=== PATIENT | male | born 1955 | race Caucasian/White ===

== ENCOUNTER 2022-06-09 14:30 | Inpatient (IN) | payer OTHER, MEDICAID ==
[~2022-06-09] VITALS: Ht 188 cm; Wt 99.4 kg
[2022-06-09 14:56] LABS: Basophils # (auto) 0.1 10 ^3/uL (0-0.2); Basophils % (auto) 0.5 % (0.0-2.0); Eosinophils # (auto) 0.1 10 ^3/uL (0-0.8); Eosinophils % (auto) 0.7 % (0.0-7.0); Hematocrit 48.7 % (41.0-53.0); Hemoglobin 16.7 g/dL (13.5-17.5); Lymphocytes # (auto) 2.6 10 ^3/uL (0.4-5.4); Lymphocytes % (auto) 14.6 % (10.0-50.0); Mean Corpuscular Hemoglobin 30.8 pg (28.0-32.0); Mean Corpuscular Hgb Conc. 34.2 g/dL (32.0-36.0); Monocytes # (auto) 2.4 10 ^3/uL (0-1.3); Monocytes % (auto) 13.5 % (0.0-12.0); Neutrophils # (auto) 12.4 10 ^3/uL (1.6-8.6); Neutrophils % (auto) 70.7 % (37.0-80.0); Nucleated Red Blood Cells % 0.1 %; Red Blood Cells 5.41 10^6/uL (4.5-5.90); Red Cell Distribution Width 14.3 % (11.8-14.3); White Blood Cell 17.6 10^3/uL (4.4-10.8)
[2022-06-09] MEDS ORDERED: ASPirin 325 MG TAB PO ONE (15:00)
[2022-06-09 15:15] LABS: INR 1.04 (0.9-1.15); Partial Thromboplastin Time 26.6 sec (24.6-33.4)
[2022-06-09 15:17] LABS: Albumin 4.1 g/dL (3.4-5.0); BUN/Creatinine Ratio 27.6; Potassium 3.6 mmol/L (3.5-5.1)
[2022-06-09 15:20] LABS: Bilirubin, Total 0.4 mg/dL (0.2-1.0); Total Protein 7.6 g/dL (6.4-8.2)
[2022-06-09] MEDS ORDERED: ENOXAPARIN SOD 100 MG/1 ML SYRINGE SC ONE (19:00)
[2022-06-09] MEDS ORDERED: FUROSEMIDE 40 MG/4 ML VIAL IV ONE (19:00)
[2022-06-09] MEDS ORDERED: NITROGLYCERIN 50MG/250ML 250 ML IV ONE (20:15)
[2022-06-09] MEDS ORDERED: HEPARIN SODIUM (PORCINE) 5000 UNITS/ML 1ML VIAL IV ONE ×2 (20:15)
[2022-06-09] MEDS ORDERED: HEPARIN DRIP/D5W 100UNITS/ML 250 ML IV SCH (20:15)
[2022-06-09] MEDS ORDERED: ONDANSETRON HCL 4 MG/2 ML VIAL IV PRN (20:45)
[2022-06-09] MEDS ORDERED: NITROGLYCERIN 0.4 MG SL TAB SL PRN (20:45)
[2022-06-09] MEDS: MORPHINE SULFATE INJ 2 MG/ml SYRG IV PRN ×2 (20:56→22:47)
[2022-06-09 21:22] LABS: Basophils # (auto) 0.1 10 ^3/uL (0-0.2); Basophils % (auto) 0.5 % (0.0-2.0); Eosinophils # (auto) 0.2 10 ^3/uL (0-0.8); Hemoglobin 15.6 g/dL (13.5-17.5); Lymphocytes # (auto) 3.7 10 ^3/uL (0.4-5.4); Lymphocytes % (auto) 22.3 % (10.0-50.0); Mean Corpuscular Hemoglobin 30.6 pg (28.0-32.0); Mean Corpuscular Hgb Conc. 33.2 g/dL (32.0-36.0); Monocytes # (auto) 2.6 10 ^3/uL (0-1.3); Monocytes % (auto) 15.6 % (0.0-12.0); Neutrophils % (auto) 60.6 % (37.0-80.0); Nucleated Red Blood Cells % 0.1 %; Red Blood Cells 5.11 10^6/uL (4.5-5.90); Red Cell Distribution Width 14.4 % (11.8-14.3); White Blood Cell 16.5 10^3/uL (4.4-10.8)
[2022-06-09 21:35] LABS: INR 1.03 (0.9-1.15)
[2022-06-09] MEDS ORDERED: ATORVASTATIN 20 MG TAB PO SCH (22:00)
[2022-06-09 22:36] LABS: Urine Bacteria NONE SEEN /hpf (None Seen); Urine Blood Negative /uL (Negative); Urine Specific Gravity 1.012 (1.001-1.035); Urine WBC <1 /hpf (0 - 3)
[2022-06-10] VITALS (9 sets, daily range): BP systolic 103–138; BP diastolic 59–81
[2022-06-10] MEDS ORDERED: ATEN1TAB PO (01:08)
[2022-06-10] MEDS ORDERED: OXYC-904 PO (01:08)
[2022-06-10] MEDS ORDERED: METF-372 PO (01:08)
[2022-06-10] MEDS ORDERED: TRAZ1TAB12 PO (01:08)
[2022-06-10] MEDS ORDERED: ATEN-60 PO (01:08)
[2022-06-10] MEDS ORDERED: CLON0.5T3 PO (01:08)
[2022-06-10] MEDS ORDERED: AML5T PO (01:08)
[2022-06-10] MEDS ORDERED: GABA400C PO (01:08)
[2022-06-10 04:01] LABS: Basophils # (auto) 0.1 10 ^3/uL (0-0.2); Basophils % (auto) 0.5 % (0.0-2.0); Eosinophils # (auto) 0.3 10 ^3/uL (0-0.8); Eosinophils % (auto) 1.9 % (0.0-7.0); Hematocrit 44.6 % (41.0-53.0); Hemoglobin 14.9 g/dL (13.5-17.5); Lymphocytes # (auto) 4.6 10 ^3/uL (0.4-5.4); Lymphocytes % (auto) 32.3 % (10.0-50.0); Mean Corpuscular Hemoglobin 30.7 pg (28.0-32.0); Mean Corpuscular Hgb Conc. 33.5 g/dL (32.0-36.0); Mean Corpuscular Volume 91.5 fL (80.0-100.0); Monocytes # (auto) 2.4 10 ^3/uL (0-1.3); Monocytes % (auto) 17.2 % (0.0-12.0); Neutrophils # (auto) 6.8 10 ^3/uL (1.6-8.6); Neutrophils % (auto) 48.1 % (37.0-80.0); Red Blood Cells 4.87 10^6/uL (4.5-5.90); Red Cell Distribution Width 14.5 % (11.8-14.3); White Blood Cell 14.2 10^3/uL (4.4-10.8)
[2022-06-10 04:15] LABS: INR 1.1 (0.9-1.15); Partial Thromboplastin Time 41.8 sec (24.6-33.4)
[2022-06-10 04:17] LABS: Albumin 3.4 g/dL (3.4-5.0)
[2022-06-10 04:21] LABS: BUN/Creatinine Ratio 36.3; Bilirubin, Total 0.4 mg/dL (0.2-1.0); Total Protein 6.7 g/dL (6.4-8.2)
[2022-06-10] MEDS ORDERED: POTASSIUM CHLORIDE 40 MEQ, LIDOCAINE 1% (LOCAL ANESTH.) 4 ML in SODIUM CHL 0.9% 250 ML IV ONE (10:00)
[2022-06-10 11:16] LABS: Magnesium 2.3 mg/dL (1.6-2.6)
[2022-06-10] MEDS: MORPHINE SULFATE INJ 2 MG/ml SYRG IV PRN ×2 (11:22→14:03)
[2022-06-10 11:31] LABS: INR 1.06 (0.9-1.15); Partial Thromboplastin Time 36.5 sec (24.6-33.4)
[2022-06-10] MEDS: ASPirin 81 mg TAB PO SCH (11:41)
[2022-06-10] MEDS ORDERED: HEPARIN DRIP/D5W 100UNITS/ML 250 ML IV SCH (11:45)
[2022-06-10] MEDS ORDERED: NITROGLYCERIN 0.2MG/HR TOPICAL PATCH TD ONE (12:15)
[2022-06-10] MEDS ORDERED: PANTOPRAZOLE 40 MG/10 ML VIAL INJ IV ONE (12:15)
[2022-06-10] MEDS: OXYCODONE W/ ACETAMINOPHEN 5/325MG TABLET PO PRN ×2 (13:27→22:49)
[2022-06-10] MEDS ORDERED: fentaNYL CITRATE 100 MCG/2 ML VL ONE (15:03)
[2022-06-10] MEDS ORDERED: ANGIOMAX 250 MG VIAL IV ONE (15:03)
[2022-06-10] MEDS ORDERED: MIDAZOLAM HCL 2MG/2ML 2ml VIAL (1mg/ml) ONE (15:04)
[2022-06-10] MEDS ORDERED: SODIUM CHL 0.9% 50 ML ONE (15:04)
[2022-06-10] MEDS ORDERED: VERAPAMIL 2.5MG/ML INJ 2ML VIAL IV ONE (15:09)
[2022-06-10] MEDS ORDERED: HEPARIN SODIUM (PORCINE) 5000 UNITS/ML 1ML VIAL ONE (15:18)
[2022-06-10] MEDS ORDERED: IODIXANOL 320MG/ML 100ML BTL IV ONE (15:33)
[2022-06-10] MEDS ORDERED: ATROPINE SULF 1 MG/10ml SYR ONE (15:55)
[2022-06-10] MEDS ORDERED: TICAGRELOR 90 MG TAB ONE (16:21)
[2022-06-10] MEDS ORDERED: HYDROmorphone HCL 2 MG/ML VL/or syr ONE (16:22)
[2022-06-10] MEDS ORDERED: ATORVASTATIN 20 MG TAB PO SCH (22:00)
[2022-06-10] MEDS ORDERED: traZODone HCL 50 MG TAB PO SCH (22:00)
[2022-06-10] MEDS: CARVEDILOL 3.125 MG TAB PO SCH (22:50)
[2022-06-11 07:02] LABS: Basophils # (auto) 0.1 10 ^3/uL (0-0.2); Basophils % (auto) 0.6 % (0.0-2.0); Eosinophils # (auto) 0.2 10 ^3/uL (0-0.8); Eosinophils % (auto) 1.3 % (0.0-7.0); Hematocrit 41.9 % (41.0-53.0); Hemoglobin 14.3 g/dL (13.5-17.5); Lymphocytes # (auto) 2.3 10 ^3/uL (0.4-5.4); Lymphocytes % (auto) 19.1 % (10.0-50.0); Mean Corpuscular Hemoglobin 30.8 pg (28.0-32.0); Mean Corpuscular Hgb Conc. 34.3 g/dL (32.0-36.0); Monocytes # (auto) 1.9 10 ^3/uL (0-1.3); Monocytes % (auto) 15.4 % (0.0-12.0); Neutrophils # (auto) 7.7 10 ^3/uL (1.6-8.6); Neutrophils % (auto) 63.6 % (37.0-80.0); Nucleated Red Blood Cells % 0.1 %; Red Blood Cells 4.65 10^6/uL (4.5-5.90); Red Cell Distribution Width 13.9 % (11.8-14.3); White Blood Cell 12.1 10^3/uL (4.4-10.8)
[2022-06-11 07:20] LABS: BUN/Creatinine Ratio 34.9; Calcium 9.2 mg/dL (8.5-10.1); Potassium 3.4 mmol/L (3.5-5.1)
[2022-06-11 08:20] VITALS: BP 110/62
[2022-06-11] MEDS ORDERED: LISINOPRIL 5 MG TAB PO SCH (10:00)
[2022-06-11] MEDS ORDERED: PANTOPRAZOLE 40 MG TAB PO SCH (10:00)
[2022-06-11] MEDS ORDERED: TICAGRELOR 90 MG TAB PO SCH (10:00)
[2022-06-11] MEDS ORDERED: NITROGLYCERIN 0.2MG/HR TOPICAL PATCH TD SCH (10:00)
[2022-06-11] MEDS ORDERED: PANTOPRAZOLE 40 MG/10 ML VIAL INJ IV SCH (10:00)
[2022-06-11] MEDS: ASPirin 81 mg TAB PO SCH (10:16)
[2022-06-11] MEDS: CARVEDILOL 3.125 MG TAB PO SCH (10:18)
[2022-06-11] MEDS: OXYCODONE W/ ACETAMINOPHEN 5/325MG TABLET PO PRN (11:18)
[2022-06-11] MEDS ORDERED: clonazePAM 0.5 MG TAB PO ONE (11:30)
[2022-06-11] MEDS ORDERED: CAR3125T PO (11:42)
[2022-06-11] MEDS ORDERED: LISI-275 PO (11:42)
[2022-06-11] MEDS ORDERED: TICA90TA PO (11:42)
[2022-06-11] MEDS ORDERED: ASPI-325 PO (11:42)
[2022-06-11] MEDS ORDERED: POTASSIUM CHL 20 Meq TABLET PO ONE (11:45)
[2022-06-11 11:58] VITALS: BP 110/62
== END 2022-06-11 12:32 | disposition home or self-care (01) | DRG 246 ==
LOC: ER 14:30 → TELE 20:35 → TELE-WESTW 06-10 07:40
PROVIDERS: ADMIT Nurse Practitioner; ATTEND Internal Medicine
PROC: 4A023N7 Measurement of Cardiac Sampling and Pressure, Left Heart, Percutaneous Approach (ICD-10-PCS; principal; 2022-06-09)
PROC: 027034Z Dilation of Coronary Artery, One Artery with Drug-eluting Intraluminal Device, Percutaneous Approach (ICD-10-PCS; 2022-06-09)
PROC: 02C03ZZ Extirpation of Matter from Coronary Artery, One Artery, Percutaneous Approach (ICD-10-PCS; 2022-06-09)
PROC: B240ZZ3 Ultrasonography of Single Coronary Artery, Intravascular (ICD-10-PCS; 2022-06-09)
PROC: B2111ZZ Fluoroscopy of Multiple Coronary Arteries using Low Osmolar Contrast (ICD-10-PCS; 2022-06-09)
PROC: B2151ZZ Fluoroscopy of Left Heart using Low Osmolar Contrast (ICD-10-PCS; 2022-06-09)
DX: I21.4 Non-ST elevation (NSTEMI) myocardial infarction (principal); I50.41 Acute combined systolic (congestive) and diastolic (congestive) heart failure; R65.10 Systemic inflammatory response syndrome (SIRS) of non-infectious origin without acute organ dysfunction; E11.9 Type 2 diabetes mellitus without complications; E66.9 Obesity, unspecified; E78.5 Hyperlipidemia, unspecified; I25.10 Atherosclerotic heart disease of native coronary artery without angina pectoris; F41.9 Anxiety disorder, unspecified; Z20.822 Contact with and (suspected) exposure to COVID-19; E87.6 Hypokalemia; G89.29 Other chronic pain; Z79.84 Long term (current) use of oral hypoglycemic drugs; I25.2 Old myocardial infarction; Z79.82 Long term (current) use of aspirin; Z79.899 Other long term (current) drug therapy; I11.0 Hypertensive heart disease with heart failure; Z68.27 Body mass index [BMI] 27.0-27.9, adult
CPT/HCPCS: 36415; 71045; 80048; 80053; 80061; 81001; 83036; 83735; 83880; 84443; 84484; 85025; 85610; 85730; 87426; 92928; 92973; 93005; 93306; 93458; 96365; 96372; 96375; 99152; 99153; 99291; C1887; C9113; G0378; J2001; J2250; Q9967

== ENCOUNTER 2023-06-12 12:56 | Inpatient (IN) | payer OTHER, MEDICAID ==
[2023-06-12] VITALS (8 sets, daily range): BP systolic 132–155; BP diastolic 78–84; PULSE 64–85; RESP 12–18; TEMP 98; O2SAT 96–97
[~2023-06-12] VITALS: Ht 188 cm; Wt 100.0 kg
[~2023-06-12 12:56] MED LIST: ASPI-325 PO; CAR3125T PO; CLON0.5T3 PO; GABA400C PO; LISI-275 PO; METF-372 PO; OXYC-998 PO; TICA90TA PO; TRAZ1TAB12 PO
[2023-06-12 13:15] LABS: Basophils # (auto) 0.1 10 ^3/uL (0-0.2); Basophils % (auto) 0.8 % (0.0-2.0); Eosinophils # (auto) 0.2 10 ^3/uL (0-0.8); Eosinophils % (auto) 1.4 % (0.0-7.0); Hematocrit 50.9 % (41.0-53.0); Hemoglobin 17.1 g/dL (13.5-17.5); Lymphocytes # (auto) 2.1 10 ^3/uL (0.4-5.4); Lymphocytes % (auto) 18.2 % (10.0-50.0); Mean Corpuscular Hemoglobin 30.2 pg (28.0-32.0); Mean Corpuscular Hgb Conc. 33.6 g/dL (32.0-36.0); Mean Corpuscular Volume 89.8 fL (80.0-100.0); Monocytes # (auto) 1.1 10 ^3/uL (0-1.3); Monocytes % (auto) 9.9 % (0.0-12.0); Neutrophils # (auto) 7.9 10 ^3/uL (1.6-8.6); Neutrophils % (auto) 69.7 % (37.0-80.0); Red Blood Cells 5.66 10^6/uL (4.5-5.90); Red Cell Distribution Width 13.8 % (11.8-14.3); White Blood Cell 11.4 10^3/uL (4.4-10.8)
[2023-06-12 13:32] LABS: Alanine Aminotransferase 49 U/L (7-40); Alkaline Phosphatase 65 U/L (46-116); Anion Gap 8 (5-15); Aspartate Aminotransferase 31 U/L (13-40); BUN/Creatinine Ratio 13.8 (10.0-20.0); Bilirubin, Total 0.4 mg/dL (0.2-1.0); Blood Urea Nitrogen 12 mg/dL (9-23); Calcium 10.1 mg/dL (8.5-10.1); Carbon Dioxide 27 mmol/L (20-30); Chloride 105 mmol/L (98-107); Glucose 157 mg/dL (74-106); Potassium 3.7 mmol/L (3.5-5.1); Sodium 140 mmol/L (136-145); Total Protein 7.9 g/dL (5.7-8.2)
[2023-06-12] MEDS: MORPHINE SULFATE 4 MG/ML SYR/VIAL IV ONE (14:07)
[2023-06-12] MEDS: ENOXAPARIN SOD 100 MG/1 ML SYRINGE SC ONE (14:08)
[2023-06-12] MEDS: ONDANSETRON HCL 4 MG/2 ML VIAL IV ONE (14:08)
[2023-06-12] MEDS: ASPirin 81 mg TAB PO ONE (14:08)
[2023-06-12 14:21] LABS: INR 1.05 (0.9-1.15)
[2023-06-12] MEDS: LIDOCAINE 2%HCL (LOCAL ANESTH.) INJ 20ML MDV ONE (16:40)
[2023-06-12] MEDS: IODIXANOL 320MG/ML 100ML BTL IV ONE (16:40)
[2023-06-12] MEDS: ANGIOMAX 250 MG VIAL IV ONE ×2 (17:06→17:34)
[2023-06-12] MEDS: fentaNYL CITRATE 100 MCG/2 ML VL ONE (17:06)
[2023-06-12] MEDS: SODIUM CHL 0.9% 50 ML ONE ×2 (17:07→17:34)
[2023-06-12] MEDS: MIDAZOLAM HCL 2MG/2ML 2ml VIAL (1mg/ml) ONE (17:07)
[2023-06-12] MEDS: ASPirin 81 mg TAB ONE (18:27)
[2023-06-12] MEDS: CLOPIDOGREL 300 MG TAB ONE (18:27)
[2023-06-12] MEDS ORDERED: CLOPIDOGREL 300 MG TAB PO ONE (19:00)
[2023-06-12] MEDS ORDERED: ASPirin 325 MG TAB PO ONE (19:00)
[2023-06-12] MEDS ORDERED: ACETAMINOPHEN 325 MG TAB PO PRN (19:00)
[2023-06-12] MEDS ORDERED: HYDROmorphone HCL 2 MG/ML VL/or syr IV PRN (20:15)
[2023-06-12] MEDS ORDERED: HYDROcodone-ACET 5/325MG TAB PO PRN (20:15)
[2023-06-12] MEDS: MAALOX PLUS or MAALOX 30 ML PO SCH (20:33)
[2023-06-12] MEDS: SODIUM CHLOR 0.9% PF (SALINE LOCK) 10ML VIAL/SYR IV SCH (20:33)
[2023-06-12] MEDS: ATORVASTATIN 20 MG TAB PO SCH (20:34)
[2023-06-13 05:00] VITALS: BP 122/73; PULSE 66; RESP 18; TEMP 97.5; O2SAT 95
[2023-06-13 06:58] LABS: Basophils # (auto) 0.1 10 ^3/uL (0-0.2); Basophils % (auto) 0.8 % (0.0-2.0); Eosinophils # (auto) 0.2 10 ^3/uL (0-0.8); Eosinophils % (auto) 2.4 % (0.0-7.0); Lymphocytes % (auto) 20.5 % (10.0-50.0); Mean Corpuscular Volume 88.1 fL (80.0-100.0); Monocytes # (auto) 1.5 10 ^3/uL (0-1.3); Monocytes % (auto) 15.2 % (0.0-12.0); Neutrophils # (auto) 5.9 10 ^3/uL (1.6-8.6); Neutrophils % (auto) 61.1 % (37.0-80.0); Nucleated Red Blood Cells % 0.1 %; Red Cell Distribution Width 13.7 % (11.8-14.3); White Blood Cell 9.7 10^3/uL (4.4-10.8)
[2023-06-13 07:16] LABS: Alanine Aminotransferase 43 U/L (7-40); Albumin 4.1 g/dL (3.2-4.8); Alkaline Phosphatase 54 U/L (46-116); Anion Gap 6 (5-15); Aspartate Aminotransferase 64 U/L (13-40); BUN/Creatinine Ratio 19.7 (10.0-20.0); Bilirubin, Total 0.5 mg/dL (0.2-1.0); Blood Urea Nitrogen 14 mg/dL (9-23); Calcium 9.4 mg/dL (8.5-10.1); Carbon Dioxide 28 mmol/L (20-30); Chloride 106 mmol/L (98-107); Cholesterol 127 mg/dL (< 200); Glucose 115 mg/dL (74-106); HDL Cholesterol 34 mg/dL (40-59); LDL Cholesterol 73 mg/dL (< 100); Potassium 3.9 mmol/L (3.5-5.1); Sodium 140 mmol/L (136-145); Total Protein 6.1 g/dL (5.7-8.2); Triglycerides 210 mg/dL (< 150)
[2023-06-13 07:34] LABS: Magnesium 2.1 mg/dL (1.6-2.6)
[2023-06-13 08:00] VITALS: PULSE 60
[2023-06-13 08:20] VITALS: PULSE 78; RESP 20; O2SAT 95
[2023-06-13 09:00] VITALS: BP 137/81; PULSE 78; RESP 20; TEMP 98.7; O2SAT 95
[2023-06-13] MEDS ORDERED: CLON-853 PO (11:35)
[2023-06-13] MEDS ORDERED: METF-869 PO (11:35)
[2023-06-13] MEDS ORDERED: ATEN50TA PO (11:42)
[2023-06-13] MEDS ORDERED: CYCL-839 PO (11:42)
[2023-06-13] MEDS ORDERED: AMLO1TAB22 PO (11:42)
[2023-06-13] MEDS ORDERED: HYDR12.59 PO (11:42)
[2023-06-13] MEDS ORDERED: CLOP75TA28 PO (11:42)
[2023-06-13] MEDS ORDERED: ROSU1TAB12 PO (11:42)
[2023-06-13] MEDS ORDERED: LOSA50TA46 PO (11:42)
[2023-06-13 13:00] VITALS: BP 145/95; PULSE 88; RESP 18; TEMP 98.2; O2SAT 94
[2023-06-13] MEDS ORDERED: PRASUGREL HCL 10 MG TAB PO ONE (13:30)
[2023-06-13] MEDS ORDERED: PRAS10TA19 PO (13:40)
[2023-06-13] MEDS ORDERED: ATE50T PO (13:40)
[2023-06-13] MEDS ORDERED: TICA90TA PO (14:01)
[2023-06-13] MEDS: TICAGRELOR 90 MG TAB PO ONE (14:14)
[2023-06-13] MEDS: ASPirin 81 mg TAB PO ONE (14:14)
[2023-06-13] MEDS: PANTOPRAZOLE 40 MG TAB PO ONE (14:14)
[2023-06-13] MEDS: METOPROLOL TARTRATE 25 MG TAB PO ONE (14:15)
[2023-06-13 14:25] VITALS: BP 145/95; PULSE 88; RESP 18; TEMP 98.2; O2SAT 94
[2023-06-14] MEDS ORDERED: ASPirin 81 mg TAB PO SCH (10:00)
== END 2023-06-13 15:23 | disposition home or self-care (01) | DRG 321 ==
LOC: ER 12:56 → TELE 18:43 → TELE-WESTW 19:26
PROVIDERS: ADMIT Specialist; ATTEND Nurse Practitioner Acute Care
PROC: 027034Z Dilation of Coronary Artery, One Artery with Drug-eluting Intraluminal Device, Percutaneous Approach (ICD-10-PCS; principal; 2023-06-12)
PROC: B2111ZZ Fluoroscopy of Multiple Coronary Arteries using Low Osmolar Contrast (ICD-10-PCS; 2023-06-12)
PROC: B2151ZZ Fluoroscopy of Left Heart using Low Osmolar Contrast (ICD-10-PCS; 2023-06-12)
PROC: 4A023N7 Measurement of Cardiac Sampling and Pressure, Left Heart, Percutaneous Approach (ICD-10-PCS; 2023-06-12)
PROC: 4A133B1 Monitoring of Arterial Pressure, Peripheral, Percutaneous Approach (ICD-10-PCS; 2023-06-12)
PROC: B447ZZ3 Ultrasonography of Left Renal Artery, Intravascular (ICD-10-PCS; 2023-06-12)
PROC: B41F1ZZ Fluoroscopy of Right Lower Extremity Arteries using Low Osmolar Contrast (ICD-10-PCS; 2023-06-12)
DX: T82.855A Stenosis of coronary artery stent, initial encounter (principal); I21.4 Non-ST elevation (NSTEMI) myocardial infarction; I11.0 Hypertensive heart disease with heart failure; E11.9 Type 2 diabetes mellitus without complications; F41.9 Anxiety disorder, unspecified; E78.5 Hyperlipidemia, unspecified; I25.10 Atherosclerotic heart disease of native coronary artery without angina pectoris; E87.6 Hypokalemia; G89.4 Chronic pain syndrome; Z79.82 Long term (current) use of aspirin; Z79.899 Other long term (current) drug therapy; Z82.49 Family history of ischemic heart disease and other diseases of the circulatory system; Z82.3 Family history of stroke; Z84.1 Family history of disorders of kidney and ureter; Z79.891 Long term (current) use of opiate analgesic; Z95.5 Presence of coronary angioplasty implant and graft; Z79.02 Long term (current) use of antithrombotics/antiplatelets
CPT/HCPCS: 36415; 71045; 75710; 80053; 80061; 83735; 84484; 85025; 85379; 85610; 92941; 93005; 93306; 93458; 96374; 96375; 99152; 99291; G0378; J2250; J2405; Q9967